=== PATIENT | female | born 1960 | race African-American/Black ===

== ENCOUNTER 2017-09-29 08:51 | Outpatient (CLI) | payer OTHER | END 2017-09-29 08:52 | disposition home or self-care (01) | LOC: BICMAMMO 08:51 | PROVIDERS: ATTEND Nurse Practitioner Family | DX: Z12.31 Encounter for screening mammogram for malignant neoplasm of breast (principal); R92.1 Mammographic calcification found on diagnostic imaging of breast; Z80.3 Family history of malignant neoplasm of breast | CPT/HCPCS: 77063; 77067 ==

== ENCOUNTER 2020-03-20 10:43 | Outpatient (CLI) | payer BC, OTHER ==
--- NOTE | 2020-03-20 11:22 | MMO ---
Bilateral MAMMO Bilat Screen [facility]. CLINICAL HISTORY: Patient is 59 years old and is seen for screening. The patient has the following family history of breast cancer: 2 cousin females. The patient has no personal history of cancer. VIEWS: The views performed were: bilateral craniocaudal with tomosynthesis; bilateral mediolateral oblique with tomosynthesis; and left mediolateral oblique. FILMS COMPARED: The present examination has been compared to prior imaging studies performed at [facility] on 05/04/2014, 05/17/2015, 07/09/2016 and 09/29/2017. This study has been interpreted with the assistance of computer-aided detection. MAMMOGRAM FINDINGS: There are scattered fibroglandular densities. There are stable benign appearing calcifications seen in both breasts. There are no suspicious masses, suspicious calcifications, or new areas of architectural distortion. IMPRESSION: THERE IS NO MAMMOGRAPHIC EVIDENCE OF MALIGNANCY. A ROUTINE FOLLOW-UP MAMMOGRAM IN 1 YEAR IS RECOMMENDED. THE RESULTS OF THIS EXAM WERE SENT TO THE PATIENT. ACR BI-RADS Category 2 - Benign finding MAMMOGRAPHY NOTE: 1. A negative mammogram report should not delay a biopsy if a dominant of clinically suspicious mass is present. 2. Approximately 10% to 15% of breast cancers are not detected by mammography. 3. Adenosis and dense breasts may obscure an underlying neoplasm. Reported by: MARGARET BOSE MD Electonically Signed: [id number]
== END 2020-03-20 10:44 | disposition home or self-care (01) ==
LOC: BICMAMMO 10:43
PROVIDERS: ATTEND Nurse Practitioner Family
DX: Z12.31 Encounter for screening mammogram for malignant neoplasm of breast (principal); Z80.3 Family history of malignant neoplasm of breast
CPT/HCPCS: 77063; 77067

== ENCOUNTER 2021-04-29 11:57 | Outpatient (CLI) | payer BC | END 2021-04-29 11:58 | disposition home or self-care (01) | LOC: BICMAMMO 11:57 | PROVIDERS: ATTEND Nurse Practitioner Family | DX: Z12.31 Encounter for screening mammogram for malignant neoplasm of breast (principal); Z80.3 Family history of malignant neoplasm of breast | CPT/HCPCS: 77063; 77067 ==

== ENCOUNTER 2022-04-21 14:22 | Emergency (ER) | payer BC ==
[2022-04-21 15:43] LABS: #Eosinphils 0.1 thou/uL (0.0-0.7); #Monocytes 0.5 thou/uL (0.11-0.59); #Neutrophils 12.5 thou/uL (1.40-6.50); %Basophils 0.1 % (0.0-1.0); %Eosinophils 0.5 % (0.0-10.0); %Lymphocytes 6.7 % (21.0-51.0); %Monocytes 3.8 % (0.0-10.0); %Neutrophils 88.9 % (42.0-75.0); Hemoglobin 14.4 g/dL (12.0-16.0); Mean Corpuscular HGB CONC 33.2 g/dL (32.0-36.0); Mean Corpuscular Hemoglobin 28.4 pg (27.0-31.0); Mean Corpuscular Volume 85.7 fl (78.0-98.0); Mean Platelet Volume 6.3 fL (7.4-10.4); Platelet Count 269 10x3/uL (130-400); RBC Distribution Width 12.3 % (11.5-14.5); Red Blood Cell (RBC) Count 5.05 mill/uL (4.20-5.40); White Blood Cell (WBC) Count 14.1 10x3/uL (4.8-10.8)
[2022-04-21 16:11] LABS: INR-International Normal Ratio 1.1; PTT 24.4 sec (22.9-36.1); Prothrombin Time 14.2 sec (12.0-14.7)
[2022-04-21] MEDS ORDERED: Azithromycin 500 MG VIAL ONE (16:13)
[2022-04-21] MEDS ORDERED: CEFAZOLIN 1 GM VIAL ONE (16:13)
[2022-04-21] MEDS ORDERED: Acetaminophen 500 MG TAB ONE (16:13)
[2022-04-21 16:16] LABS: ALT (SGPT) 12 U/L (8-55); AST (SGOT) 14 U/L (5-34); Albumin 4.1 g/dL (3.4-4.8); Alkaline Phosphatase 98 U/L (40-110); Anion Gap 13 mmol/L (10-20); BUN (Urea Nitrogen) 9 mg/dL (9.8-20.1); Bilirubin, Total 1.3 mg/dL (0.2-1.2); Calc. Creatinine Clearance 0 mL/min (70-130); Calcium 9.5 mg/dL (7.8-10.44); Carbon Dioxide 24 mmol/L (23-31); Chloride 99 mmol/L (98-107); Estimated GFR 82; Globulin 4.2 g/dL (2.4-3.5); Glucose 207 mg/dL (80-115); Lipase 17 U/L (8-78); Potassium 3.4 mmol/L (3.5-5.1); Protein, Total 8.3 g/dL (5.8-8.1); Sodium 133 mmol/L (136-145)
[2022-04-21 17:34] LABS: Bilirubin Negative (Negative); Blood, Urine Negative (Negative); Clarity Clear (Clear); Glucose, Urine (Dipstick) Normal (Negative); Ketone, Urine Negative (Negative); Leukocyte Negative Leu/uL (Negative); Nitrite Negative (Negative); Protein, Urine (Dipstick) Negative (Neg-Trace); Specific Gravity, Urine 1.006 (1.002-1.036); Urobilinogen Normal mg/dL (Less than 2)
[2022-04-21 17:38] LABS: SARS-CoV-2 NAA Rapid Test Not Detected (NotDetected)
== END 2022-04-21 17:03 | disposition home or self-care (01) ==
LOC: ERS 14:22
DX: R50.9 Fever, unspecified (principal); R30.0 Dysuria; I10 Essential (primary) hypertension; Z20.822 Contact with and (suspected) exposure to COVID-19
CPT/HCPCS: 36415; 71045; 80053; 81003; 83605; 83690; 83880; 84484; 85025; 85379; 85610; 85730; 87040; 93005; 96374; 96375; J0690

== ENCOUNTER 2023-09-08 10:43 | Outpatient (CLI) | payer BC | END 2023-09-08 10:44 | disposition home or self-care (01) | LOC: BICMAMMO 10:43 | PROVIDERS: ATTEND Nurse Practitioner Family | DX: Z12.31 Encounter for screening mammogram for malignant neoplasm of breast (principal); Z80.3 Family history of malignant neoplasm of breast | CPT/HCPCS: 77063; 77067 ==